=== PATIENT | male | born 1990 | race Two or more races ===

== ENCOUNTER 2025-01-30 00:32 | Emergency (ER) | payer OTHER ==
[~2025-01-30] VITALS: Ht 177.8 cm; Wt 72.6 kg
[2025-01-30] MEDS ORDERED: CLINDAMYCIN PHOSPHATE 150 MG/ML (600mg) IM STA (02:54)
[2025-01-30] MEDS ORDERED: TETANUS & DIPHTHERIA TOX,ADULT 0.5 ML VIAL IM STA (02:54)
[2025-01-30] MEDS ORDERED: CLINDAMYCIN PHOSPHATE 150 MG/ML (300mg) ONE (02:56)
[2025-01-30] MEDS ORDERED: DIPHTH,PERTUSS(ACELL),TET VAC 0.5 ML SYRINGE IM ONE (02:56)
[2025-01-30] MEDS ORDERED: POVIDONE-IODINE 118 ML BOTT TOP ONE (02:57)
== END 2025-01-30 03:38 | disposition home or self-care (01) ==
LOC: ER 01:13
DX: S60.572A Other superficial bite of hand of left hand, initial encounter (principal); S60.571A Other superficial bite of hand of right hand, initial encounter; W54.0XXA Bitten by dog, initial encounter; Y93.89 Activity, other specified; Y92.89 Other specified places as the place of occurrence of the external cause; Y99.9 Unspecified external cause status